=== PATIENT | male | born 1965 | race Caucasian/White ===

== ENCOUNTER 2019-05-07 17:16 | Emergency (ER) | payer OTHER ==
[2019-05-07] MEDS: ACETAMINOPHEN 500 MG TAB PO (18:41)
[2019-05-07] MEDS: LIDOCAINE 1% (MDV) 20 ML INJ SC (18:42)
[2019-05-07] MEDS: DIPHTH/TET/ACEL PERTUSS (ADULT) 0.5 ML VIAL IM* (18:42)
== END 2019-05-07 19:49 | disposition home or self-care (01) ==
LOC: FTE 19:49
DX: S11.91XA Laceration without foreign body of unspecified part of neck, initial encounter (principal); W26.8XXA Contact with other sharp object(s), not elsewhere classified, initial encounter; Y92.9 Unspecified place or not applicable; Z23 Encounter for immunization
CPT/HCPCS: 12002; 90471; 90715; 99283-25

== ENCOUNTER 2019-05-09 19:17 | Emergency (ER) | payer OTHER | END 2019-05-09 19:33 | disposition home or self-care (01) | LOC: E/R 19:33 → FTE 19:17 | DX: Z48.01 Encounter for change or removal of surgical wound dressing (principal) | CPT/HCPCS: 99281; Z7502 ==

== ENCOUNTER 2019-05-13 18:35 | Emergency (ER) | payer OTHER | END 2019-05-13 19:28 | disposition home or self-care (01) | LOC: E/R 19:28 | DX: Z48.02 Encounter for removal of sutures (principal) | CPT/HCPCS: 99281; Z7502 ==